=== PATIENT | female | born 1985 | race Hispanic/Latino ===

== ENCOUNTER 2017-02-27 15:57 | Emergency (ER) | payer OTHER ==
[2017-02-27 16:00] VITALS: BMI 23.8
--- NOTE | 2017-02-27 16:38 | ED PDOC ---
Arrival/HPI - General Chief Complaint: Substance Abuse Time Seen by Provider: 02/27/17 16:01 Historian: Patient, Family - History of Present Illness Narrative History of Present Illness (Text): 02/27/17 16:36 31yr old female presents today with drug overdose. pt states she took a 30mg roxicodone and 2mg of xanax (xanax stick). family member states patient was very drowsy at home. pt denies cp or sob. no abdominal pain. no fever/chills. denies SI. pt states she was trying to get clean from opiods and relapsed. pt states she hasnt been sleeping well. no other complaints. Time/Duration: Prior to Arrival Symptom Course: Improving Past Medical History - Provider Review Nursing Documentation Reviewed: Yes - Travel History Have you recently traveled outside [place] w/in the past 3 mons?: No - Infectious Disease Hx of Infectious Diseases: None - Reproductive Menopause: No - Pulmonary Other/Comment: cyst removed from neck. - Psychiatric Hx Substance Use: Yes - Anesthesia Hx Anesthesia: No Hx Anesthesia Reactions: No Hx Malignant Hyperthermia: No Family/Social History - Physician Review Nursing Documentation Reviewed: Yes Family/Social History: Unknown Family HX Smoking Status: Former Smoker Hx Alcohol Use: No Hx Substance Use: Yes Substance used: Heroin Allergies/Home Meds Allergies/Adverse Reactions: Allergies No Known Allergies Allergy (Verified 02/27/17 16:01) Home Medications: Home Meds Medication Instructions Recorded Confirmed No Known Home Med 02/27/17 02/27/17 Review of Systems - Review of Systems Constitutional: absent: Fatigue, Fevers Respiratory: absent: SOB, Cough Cardiovascular: absent: Chest Pain, Palpitations Gastrointestinal: absent: Abdominal Pain, Nausea, Vomiting Genitourinary Female: absent: Dysuria Musculoskeletal: absent: Arthralgias Skin: absent: Rash Neurological: absent: Headache, Dizziness Psychiatric: absent: Anxiety, Suicidal Ideation Physical Exam Vital Signs Reviewed: Yes Vital Signs Temp Pulse Resp BP Pulse Ox 02/27/17 19:08 98.6 F 91 H 17 115/54 L 98 02/27/17 17:04 98.0 F 96 H 17 100/60 100 02/27/17 16:04 97.8 F 107 H 18 113/67 100 Temperature: Afebrile Blood Pressure: Normal Pulse: Tachycardic Respiratory Rate: Normal Appearance: Positive for: Well-Appearing, Non-Toxic, Comfortable Pain Distress: None Mental Status: Positive for: Alert and Oriented X 3 - Systems Exam Head: Present: Atraumatic Pupils: Present: Pinpoint Conjunctiva: Present: Normal Mouth: Present: Moist Mucous Membranes Neck: Present: Normal Range of Motion Respiratory/Chest: Present: Clear to Auscultation, Good Air Exchange. No: Respiratory Distress, Accessory Muscle Use Cardiovascular: Present: Regular Rate and Rhythm, Normal S1, S2. No: Murmurs Abdomen: Present: Normal Bowel Sounds. No: Tenderness, Distention, Peritoneal Signs, Rebound, Guarding Back: Present: Normal Inspection. No: Midline Tenderness, Paraspinal Tenderness Upper Extremity: Present: Normal ROM Lower Extremity: Present: Normal ROM Neurological: Present: GCS=15, Speech Normal Skin: Present: Warm, Dry, Normal Color. No: Rashes Psychiatric: Present: Alert, Oriented x 3 Medical Decision Making ED Course and Treatment: 02/27/17 18:05 Patient is nontoxic well-appearing in no distress vital signs are stable. pt alert; oriented; speaking in full sentences. family at beside. denies any complaints. CBC WNL CMP WNL Tylenol WNL Salicylate WNL Alcohol level WNL Urine drug screen + benzos UA; + trace leukocytes; no uti symptoms; will send urine culture. appears contaminated. cxr: wnl ekg: NSR at 79b/m with sinus arrhythmia, no st elevations. normal axis, normal intervals. pt reassessment; alert, oriented; stable vitals. no distress. pt is medically cleared for PES evaluation Patient was seen and evaluated by PES screener: HUE pt reassessment; alert, oriented, no distress. denies any complaints; drinking coffee. ambulates with steady gait. family at bedside; discussed results with patient. advised f/u with pmd. Impression; substance abuse follow up with the primary care physician within the next 2 days increase fluids return immediately if symptoms worsen,persist or if new symptoms develop. - Lab Interpretations Lab Results: 02/27/17 16:55 02/27/17 16:55 Lab Results 02/27/17 16:55: Alcohol, Quantitative < 10 02/27/17 16:55: Salicylates < 1 L, Acetaminophen < 10.0 L 02/27/17 16:55: Urine Opiates Screen Negative, Urine Methadone Screen Negative, Ur Barbiturates Screen Negative, Ur Phencyclidine Scrn Negative, Ur Amphetamines Screen Negative, U Benzodiazepines Scrn Positive H, U Oth Cocaine Metabols Negative, U Cannabinoids Screen Negative 02/27/17 16:55: Sodium 145, Potassium 3.9, Chloride 107, Carbon Dioxide 27, Anion Gap 15, BUN 11, Creatinine 0.8, Est GFR ( Amer) > 60, Est GFR (Non- Af Amer) > 60, Random Glucose 108, Calcium 9.0, Total Bilirubin 0.3, AST 17, ALT 34, Alkaline Phosphatase 59, Total Protein 7.0, Albumin 4.4, Globulin 2.6, Albumin/Globulin Ratio 1.7 02/27/17 16:55: Urine Color Yellow, Urine Appearance Clear, Urine pH 6.0, Ur Specific [place] 1.020, Urine Protein Negative, Urine Glucose (UA) Negative, Urine Ketones Negative, Urine Blood Trace-lysed H, Urine Nitrate Negative, Urine Bilirubin Negative, Urine Urobilinogen 0.2, Ur Leukocyte Esterase Trace H , Urine RBC 0 - 2, Urine WBC 1 - 3, Ur Epithelial Cells 4 - 5 02/27/17 16:55: WBC 5.7, RBC 4.15, Hgb 12.3, Hct 35.7 L, MCV 86.0, MCH 29.6, MCHC 34.5, RDW 11.9, Plt Count 180, MPV 9.6, Gran % 73.2 H, Lymph % (Auto) 19.9 L, [place] % (Auto) 6.3 H, Eos % (Auto) 0.4 L, Baso % (Auto) 0.2, Gran # 4.17, Lymph # 1.1 L, [place] # 0.4, Eos # 0.0, Baso # 0.01 - RAD Interpretation Radiology Orders: 02/27/17 16:30 CHEST PORTABLE [RAD] Stat Disposition/Present on Arrival - Present on Arrival Any Indicators Present on Arrival: No History of DVT/PE: No History of Uncontrolled Diabetes: No Urinary Catheter: No History of Decub. Ulcer: No History Surgical Site Infection Following: None - Disposition Have Diagnosis and Disposition been Completed?: Yes Diagnosis: Substance abuse Disposition: HOME/ ROUTINE Disposition Time: 22:39 Patient Plan: Discharge Condition: GOOD Additional Instructions: follow up with the primary care physician within the next 2 days increase fluids return immediately if symptoms worsen,persist or if new symptoms develop. Referrals: Eugene Montez DO [Staff Provider] - Follow up with primary [facility] [place] [Outside] - Follow up with primary [facility] [Outside] - Follow up with primary Forms: [employer] ([place])
--- NOTE | 2017-02-27 16:59 | RAD ---
HISTORY: pes eval COMPARISON: No prior. FINDINGS: LUNGS: No active pulmonary disease. PLEURA: No significant pleural effusion identified, no pneumothorax apparent. CARDIOVASCULAR: Normal. OSSEOUS STRUCTURES: No significant abnormalities. VISUALIZED UPPER ABDOMEN: Normal. OTHER FINDINGS: None. IMPRESSION: No active disease.
[2017-02-27 17:05] VITALS: RESP 17
[2017-02-27 17:07] LABS: BASO # 0.01 K/mm3 (0.0-2.0); BASO % 0.2 % (0.0-3.0); EOS % 0.4 % (1.5-5.0); GRAN # 4.17 (1.4-6.5); GRAN % 73.2 % (50.0-68.0); HEMATOCRIT 35.7 % (36.0-48.0); LYMPH # 1.1 (1.2-3.4); LYMPH % 19.9 % (22.0-35.0); MEAN CORPUSCULAR HEMOGLOBIN 29.6 pg (25.0-35.0); MEAN CORPUSCULAR HGB CONC 34.5 g/dl (31.0-37.0); MEAN PLATELET VOLUME 9.6 fl (7.0-11.0); MONO # 0.4 (0.1-0.6); MONO % 6.3 % (1.0-6.0); RED CELL DISTRIBUTION WIDTH 11.9 % (11.5-14.5); URINE BILIRUBIN NEGATIVE (NEGATIVE); URINE BLOOD TRACE-LYSED (NEGATIVE); URINE GLUCOSE (UA) NEGATIVE (NEGATIVE); URINE KETONE NEGATIVE (NEGATIVE); URINE LEUKOCYTE ESTERASE TRACE Leu/uL (NEGATIVE); URINE PROTEIN NEGATIVE mg/dL (<30 mg/dL); URINE UROBILINOGEN 0.2 E.U./dL (<1 E.U./dL); WHITE BLOOD COUNT 5.7 10^3/ul (4.5-11.0)
[2017-02-27 17:19] LABS: ALB/GLOB RATIO 1.7 (1.1-1.8); ALKALINE PHOSPHATASE 59 U/L (38-126); ALT/SGPT 34 U/L (7-56); AST/SGOT 17 U/L (14-36); BILIRUBIN,TOTAL 0.3 mg/dL (0.2-1.3); BLOOD UREA NITROGEN 11 mg/dL (7-21); CARBON DIOXIDE 27 mmol/L (21-33); CHLORIDE 107 mmol/L (98-107); GFR AFRICAN-AMERICAN > 60; GLUCOSE,RANDOM 108 mg/dL (70-110); POTASSIUM 3.9 mmol/L (3.6-5.0); SODIUM 145 mmol/L (132-148)
[2017-02-27 17:35] LABS: URINE APPEARANCE CLEAR (CLEAR); URINE COLOR YELLOW (YELLOW)
[2017-02-27 17:44] LABS: URINE RBC 0 - 2 /hpf (0-2)
[2017-02-27 19:09] VITALS: BP 115/54; PULSE 91; TEMP 98.6; O2SAT 98
--- NOTE | 2017-02-27 21:59 | CARD ---
APPROVED REPORT EKG Measurement Heart [id number] <Conclusion> Normal sinus rhythm with sinus arrhythmia Possible Left atrial enlargement Borderline ECG
== END 2017-02-27 22:50 | disposition home or self-care (01) ==
LOC: ED 15:57
DX: F19.10 Other psychoactive substance abuse, uncomplicated (principal)